=== PATIENT | female | born 2000 | race African-American/Black ===

== ENCOUNTER 2019-11-26 01:40 | Emergency (ER) | payer SELFPAY ==
[~2019-11-26] VITALS: Ht 167.6 cm; Wt 91.2 kg
--- NOTE | 2019-11-26 02:05 | NUR ---
PT REFUSED BLOOD DRAW. AWARE
--- NOTE | 2019-11-26 02:34 | NUR ---
ULTRASOUND AT BEDSIDE
--- NOTE | 2019-11-26 02:40 | NUR ---
PT STATED SHE DOES NOT WANT BLOOD WORK DONE NOR URINE.
--- NOTE | 2019-11-26 03:17 | NUR ---
PT RESTING COMFORTABLY. DENIES ABD PAIN. PROVIDED WITH BLANKET.
--- NOTE | 2019-11-26 04:20 | NUR ---
PT PROVIDED WITH BLANKET AND WATER.
--- NOTE | 2019-11-26 05:41 | NUR ---
Patient discharged to home in stable condition. Written and verbal after care instructions given. Patient verbalizes understanding of instruction. Pt did not want to sign homeless waiver. vss. Provided with sandwhich, food, and socks.
[2019-11-26 05:42] VITALS: BP 127/71
== END 2019-11-26 05:42 | disposition home or self-care (01) ==
LOC: ER 01:42
DX: O26.893 Other specified pregnancy related conditions, third trimester (principal); R10.30 Lower abdominal pain, unspecified; I95.9 Hypotension, unspecified; Z3A.31 31 weeks gestation of pregnancy; Z59.0 Homelessness
CPT/HCPCS: 76805-TC